=== PATIENT | female | born 1975 | race American Indian/Alaskan Native ===

== ENCOUNTER 2017-09-09 17:42 | Emergency (ER) | payer BC ==
[2017-09-09 17:46] VITALS: BP 116/78; PULSE 99; RESP 20; TEMP 98.5; O2SAT 98
--- NOTE | 2017-09-09 18:08 | C.PDOC ---
History Of Present Illness 42 y/o female presents to the ED for evaluation of dry cough, fever, myalgia, and malaise since yesterday. Patient reports TM of 100.6. Patient reports sore throat due to coughing. Reports limited relief with OTC cold/flu medication. DRY COUGH, FEVER, MYALGIA MALAISE SINCE YEST. TM 100.6. SORE THROAT DUE TO COUGHING. LIMITED RELIEF W OTC COLD/FLU MEDS EXAM NONTOXIC HEENT NEG LUNGS CTA B/L NO W/R/R REMAINDE RNEG Time Seen by Provider: 09/09/17 17:59 Chief Complaint (Nursing): Flu-like Symptoms History Per: Patient History/Exam Limitations: no limitations Onset/Duration Of Symptoms: Hrs Current Symptoms Are (Timing): Still Present Location Of Pain: Diffuse Myalgias Associated Symptoms: Fever, Cough, Myalgias Additional History Per: Patient Past Medical History Reviewed: Historical Data, Nursing Documentation, Vital Signs Vital Signs: Last Vital Signs Temp 98.5 F 09/09/17 17:44 Pulse 99 H 09/09/17 17:44 Resp 20 09/09/17 17:44 BP 116/78 09/09/17 17:44 Pulse Ox 98 09/09/17 18:08 - Medical History PMH: Migraine Surgical History: - [facility] TETANUS TOXOID ADMINIST (04/19/04) Family History: States: Unknown Family Hx - Social History Hx Tobacco Use: No Hx Alcohol Use: No Hx Substance Use: No - Immunization History Hx Tetanus Toxoid Vaccination: No Hx Influenza Vaccination: No Hx Pneumococcal Vaccination: No Review Of Systems Constitutional: Positive for: Fever, Malaise Respiratory: Positive for: Cough Musculoskeletal: Positive for: Other (myalgias ) Physical Exam - Physical Exam Appears: Non-toxic, No Acute Distress Skin: Normal Color, Warm, Dry Head: Atraumatic, Normacephalic Eye(s): bilateral: Normal Inspection Ear(s): Bilateral: Normal Nose: Normal, No Discharge Oral Mucosa: Moist Throat: Normal, No Erythema, No Exudate Neck: Supple Chest: Symmetrical, No Deformity, No Tenderness Cardiovascular: Rhythm Regular, No Murmur Respiratory: Normal Breath Sounds, No Rales, No Rhonchi, No Wheezing, Other ( clear to auscultation bilaterally) Extremity: Normal ROM, Capillary Refill (less than 2 seconds ) Neurological/Psych: Oriented x3, Normal Speech, Normal Cognition ED Course And Treatment O2 Sat by Pulse Oximetry: 98 (on RA ) Pulse Ox Interpretation: Normal Progress Note: Tamiflu PO and Tessalon Perles PO administered. Disposition Counseled Patient/Family Regarding: Diagnosis, Need For Followup, Rx Given - Disposition Referrals: YOUR,PMD [Other] Disposition: HOME/ ROUTINE Disposition Time: 18:07 Condition: IMPROVED Prescriptions: Benzonatate [Tessalon Perles] 200 mg PO TID PRN #15 sgl PRN Reason: Cough Oseltamivir [Tamiflu] 75 mg PO BID #9 cap Instructions: Flu, Adult (DC) Forms: [facility] ([place]ian), Work Excuse - Clinical Impression Clinical Impression: Influenza-like illness, Cough - Scribe Statement The provider has reviewed the documentation as recorded by the Scribe (Susan Pratt) Provider Attestation: All medical record entries made by the Scribe were at my direction and personally dictated by me. I have reviewed the chart and agree that the record accurately reflects my personal performance of the history, physical exam, medical decision making, and the department course for this patient. I have also personally directed, reviewed, and agree with the discharge instructions and disposition.
== END 2017-09-09 18:34 | disposition home or self-care (01) ==
LOC: C.ER 17:42
DX: J11.1 Influenza due to unidentified influenza virus with other respiratory manifestations (principal); R50.9 Fever, unspecified